=== PATIENT | male | born 1965 | race Caucasian/White ===

== ENCOUNTER 2017-01-29 11:59 | Emergency (ER) | payer MEDICAID ==
[2017-01-29 12:00] VITALS: BP 143/104
== END 2017-01-29 14:47 | disposition home or self-care (01) ==
LOC: ED 11:59
DX: R31.9 Hematuria, unspecified (principal); R30.0 Dysuria; R39.15 Urgency of urination; R35.0 Frequency of micturition
CPT/HCPCS: 87491; 87591